=== PATIENT | male | born 1950 | race Caucasian/White ===

== ENCOUNTER 2018-05-02 04:46 | Inpatient (IN) ==
[2018-04-25 17:44] LABS: Appearance,Urine CLEAR; Bilirubin,Urine NEG (NEG); Color,Urine YELLOW; Glucose,Urine (UA) NEGATIVE (NEG); Leukocyte Esterase,Urine NEG /uL (NEG); Protein,Urine NEG (NEG); Specific Gravity,Urine 1.016 (1.000-1.035); Urine Blood NEG mg/dL (<0.03); Urobilinogen,Urine NEG (NEG)
[2018-04-25 18:28] LABS: Basophils # (Auto) 0 K/mcL (0.0-0.3); Basophils % (Auto) 0.7 % (0.0-2.0); Eosinophils # (Auto) 0.2 K/mcL (0.0-0.7); Eosinophils % (Auto) 2.7 % (0.0-7.0); Granulocytes % (Auto) 60.4 % (38.0-78.0); Lymphocytes # (Auto) 1.7 K/mcL (1.5-4.8); Lymphocytes % (Auto) 28.3 % (15.5-49.0); Mean Cell Volume 83.2 fL (80.0-100.0); Mean Corpuscular HGB Conc 33.5 g/dL (31.0-36.0); Mean Corpuscular Hemoglobin 27.8 pg (26.0-34.0); Monocytes # (Auto) 0.5 K/mcL (0.1-0.9); Monocytes % (Auto) 7.9 % (1.0-12.0); Platelet Count 239 K/mcL (140-440); Red Cell Distribution Width 16.3 % (11.5-14.5)
[2018-04-25 18:35] LABS: Blood Urea Nitrogen 14 mg/dl (8-23)
[2018-05-02] MEDS ORDERED: SCOPOLAMINE 1 PATCH PATCH TOPICAL ONE (05:11)
[2018-05-02] MEDS ORDERED: SCOPOLAMINE 1 PATCH PATCH ONE (05:28)
[2018-05-02] MEDS ORDERED: ceFAZolin 1 GM VIAL IV SCH (07:00)
[2018-05-02] MEDS ORDERED: oxyCODONE 10 MG TAB.ER.12H PO SCH (07:00)
[2018-05-02] MEDS ORDERED: 0.9 % SODIUM CHLORIDE 9 ML, KETOROLAC 30 MG, ROPIVACAINE HCL/PF 49.5 ML, EPINEPHrine 0.... IJ SCH (07:00)
[2018-05-02] MEDS ORDERED: CELECOXIB 200 MG CAPSULE PO SCH (07:00)
[2018-05-02] MEDS ORDERED: PREGABALIN 75 MG CAPSULE PO SCH (07:00)
[2018-05-02] MEDS ORDERED: MIDAZOLAM 5 MG/5 ML VIAL IV ONE (07:35)
[2018-05-02] MEDS ORDERED: PROPOFOL 200 MG/20 ML VIAL IV ONE (07:35)
[2018-05-02] MEDS ORDERED: GLYCOPYRROLATE 0.2 MG/ML VIAL IV ONE (07:35)
[2018-05-02] MEDS ORDERED: DEXAMETHASONE 10 MG/ML VIAL IV ONE (07:35)
[2018-05-02] MEDS ORDERED: LIDOCAINE HCL/PF 100 MG/5 ML SYRINGE IV ONE (07:35)
[2018-05-02] MEDS ORDERED: ONDANSETRON 4 MG/2 ML VIAL IV ONE (07:35)
[2018-05-02] MEDS ORDERED: TRANEXAMIC ACID 1,000 MG/10 ML VIAL IV ONE (07:35)
[2018-05-02] MEDS ORDERED: ROPIVACAINE HCL/PF 20 ML VIAL IJ ONE (07:35)
[2018-05-02] MEDS ORDERED: GENTAMICIN SULFATE 800 MG/20 ML VIAL IR ONE (08:19)
[2018-05-02] MEDS ORDERED: fentaNYL 100 MCG/2 ML VIAL IV PRN (08:33)
[2018-05-02] MEDS ORDERED: PROMETHAZINE 25 MG/ML VIAL IV PRN (08:33)
[2018-05-02] MEDS ORDERED: diphenhydrAMINE 50 MG/ML VIAL IV PRN (08:33)
[2018-05-02] MEDS ORDERED: ONDANSETRON 4 MG/2 ML VIAL IV PRN ×2 (08:33→09:11)
[2018-05-02] MEDS ORDERED: IPRATROPIUM/ALBUTEROL 3 ML AMPUL.NEB NEB PRN (08:33)
[2018-05-02] MEDS ORDERED: NALOXONE HCL 0.4 MG/ML VIAL IV PRN (08:33)
[2018-05-02] MEDS ORDERED: MEPERIDINE 25 MG/ML SYRINGE IV PRN (08:33)
[2018-05-02] MEDS ORDERED: ACETAMINOPHEN 1,000 MG/100 ML BOTTLE IV ONE (08:33)
[2018-05-02] MEDS ORDERED: FLUMAZENIL 0.1 MG/ML ML IV PRN (08:33)
[2018-05-02] MEDS ORDERED: LACTATED RINGERS 250 ML IV PRN (08:33)
[2018-05-02] MEDS ORDERED: BENZOCAINE/MENTHOL 1 LOZENGE PO PRN ×2 (08:33→09:11)
[2018-05-02] MEDS ORDERED: LACTATED RINGERS 1,000 ML IV SCH (08:45)
--- NOTE | 2018-05-02 09:10 | Brief Operative Note ---
Date of procedure: 05/02/18 Pre-op diagnosis: right knee oa Post-op diagnosis: same Procedure: right total knee arthroplasty Grafts/Implants: Yes Anesthesia: spinal Complications: none Surgeon: Saran Lockhart Salon Supervisor: Dagmar Boyle Estimated blood loss (cc): 150 Tourniquet Time (Minutes): 67 Specimens Removed/Pathology: none sent Condition: stable Disposition: PACU
[2018-05-02] MEDS ORDERED: METHOCARBAMOL 750 MG TABLET PO PRN (09:11)
[2018-05-02] MEDS ORDERED: TRANEXAMIC ACID 1,000 MG/10 ML VIAL IV SCH (09:11)
[2018-05-02] MEDS ORDERED: BISACODYL 10 MG SUPP.RECT PR PRN (09:11)
[2018-05-02] MEDS ORDERED: ONDANSETRON ODT 4 MG TABLET SL PRN (09:11)
[2018-05-02] MEDS ORDERED: FLEETS ADULT ENEMA PR PRN (09:11)
[2018-05-02] MEDS ORDERED: POLYETHYLENE GLYCOL 3350 17 GM PACKET PO PRN (09:11)
[2018-05-02] MEDS ORDERED: MAGNESIUM HYDROXIDE 30 ML ORAL.SUSP PO PRN (09:11)
--- NOTE | 2018-05-02 09:37 | Operative Note ---
DATE OF OPERATION: 05/02/2018 PREOPERATIVE DIAGNOSIS: Degenerative joint disease, right knee. POSTOPERATIVE DIAGNOSIS: Degenerative joint disease, right knee. PROCEDURE: Right total knee arthroplasty. SURGEON: Samia Lockhart M.D. WIRE WRAPPING MACHINE OPERATOR SURGEON: Dagmar Boyle PA-C. ANESTHESIA: Spinal with LMA assist. ESTIMATED BLOOD LOSS: 150 mL. COMPLICATIONS: None noted. SPECIMENS REMOVED: None. DRAINS: None. TOURNIQUET TIME: 67 minutes at 300 mmHg. IMPLANTS: DePuy CMW2 bone cement 20 grams x5; DePuy Attune tibial base fixed bearing size 8, cemented; DePuy Attune femoral posterior stabilized size 7 right, cemented; DePuy Attune tibial insert fixed bearing posterior stabilized size 7, 8 mm AOX; DePuy Attune patella medialized dome 41 mm cemented AOX. INDICATIONS: The patient has had a long-standing history of worsening pain in the knee that has failed conservative treatment. Radiographs have confirmed advanced degenerative joint disease. After a long discussion about treatment options, the patient elected to proceed with a knee arthroplasty. The risks and benefits were discussed with the patient in detail including, but not limited to, the risks of anesthesia, problems with the heart or lungs related to anesthesia, infection, compromise or injury to the nerves and blood vessels, deep venous thrombosis, pulmonary embolism, pneumonia, continued pain after surgery, worsening pain or symptoms after surgery, swelling, loss of motion, instability, leg length discrepancy, and need for repeat surgery. DESCRIPTION OF PROCEDURE: The patient was seen in the pre-anesthesia waiting room where all questions were answered and the correct side and site were identified and marked. The patient was transferred to the operating room and administered the anesthetic and given pre-operative antibiotics. A time-out was then called. The extremity was prepped and draped, exsanguinated, and the tourniquet was inflated to 300 mmHg. A midline skin incision was then made with a standard medial parapatellar arthrotomy. Debridement of the menisci, ACL, and PCL was performed followed by balancing releases in the medial lateral plane. We then established intramedullary access to both the femur and tibia in a standard fashion. The femoral guide aurora was initially placed with the distal femoral guide, pinned into place, and the distal femoral cut was performed and checked with a flat plate. We then turned our attention to the tibia. The intramedullary guide was placed with the proximal tibial cutting block. The block was appropriately positioned off the affected side, varus and valgus was checked with the extra-medullary guide, and the block was pinned into place. The proximal tibial cut was performed and the tibia was prepared for the tibial implant with appropriate rotation. The tibia, femur, and posterior compartment were debrided of osteophytes, loose bodies, and meniscal fragments We then used the gap balancing technique to balance extension with the first two cuts and good balancing was obtained with a 10 millimeter gap block. We turned our attention back to the femur and used the referencing block and implant to size appropriately. Using the gap balancing technique for the flexion space we set our rotation of the femur off the tibial cut. Anesthesia gave the patient 1 gram of Tranexamic Acid via an intravenous route. We placed the 4 in 1 cutting block and made anterior, posterior, and chamfer cuts. Box plasty cuts were then made in a standard fashion for the posterior stabilized prosthesis. We then completed osteophyte release and posterior capsule release from the posterior compartment. Trials were placed and we chose the polyethylene insert thickness that provided the best stability in all planes. With the trials in place, we did a measured resection for a resurfacing patella. We sized the patella and placed the patella trial and performed a lateral facetectomy with the saw and rongeur. Good tracking was obtained. We removed all trials, irrigated and dried all cut surfaces. We cemented the components into place including tibia, femur and patella. We placed a trial liner and held the knee in full extension with the patella compressed while the cement cured. We then removed all excess cement and placed the final polyethylene tibiofemoral component. Irrigation with 3 liters of antibiotic saline was then performed using jet-lavage. We let the tourniquet down and coagulated bleeding vessels. We injected a 100 cubic centimeter volume including Ropivacaine 49.25 cubic centimeters at 5 milligrams per cubic centimeter, Ketorolac 30 milligrams, and Epinephrine 0.5 milligrams into 100 cubic centimeters volume of normal saline. We closed the retinaculum with #2 Stratafix and 0 Vicryl. We closed the subcutaneous tissue and skin in layers out to Dermabond on the skin. A sterile pressure dressing was applied. All needle and sponge counts were correct. The patient was transferred to the recovery room in stable condition. TAYLOR:addie Job ID: [id number] Doc ID: [id number] Samia Lockhart MD
--- NOTE | 2018-05-02 10:11 | XRay Report ---
CLINICAL INFORMATION: Post-Op Total Knee COMPARISON: None. FINDINGS: Total knee prostheses anatomically aligned. No osseous abnormality. Periarticular gas and soft tissue swelling seen as expected IMPRESSION: Negative Interpreted and Authenticated by: Saran Mata 05/02/18
[2018-05-02] MEDS: KETOROLAC 15 MG/ML VIAL IV SCH ×3 (12:01→23:45)
[2018-05-02] MEDS: 0.9 % SODIUM CHLORIDE 10 ML SYRINGE IV SCH (14:14)
[2018-05-02] MEDS: ceFAZolin 1 GM VIAL IV SCH ×2 (14:45→23:45)
[2018-05-02] MEDS: oxyCODONE/APAP 5/325MG TABLET PO PRN ×2 (14:56→20:53)
[2018-05-02] MEDS: 0.9 % SODIUM CHLORIDE 1,000 ML IV SCH ×2 (18:00→18:02)
[2018-05-02] MEDS: ASPIRIN 325 MG ENTERIC COATED TABLET PO SCH (20:51)
[2018-05-02] MEDS: DOCUSATE SODIUM 100 MG CAPSULE PO SCH (20:52)
[2018-05-02] MEDS ORDERED: ATORVASTATIN 20 MG TABLET PO SCH (21:00)
[2018-05-02] MEDS ORDERED: SENNOSIDES 1 TABLET PO SCH (21:00)
[2018-05-03] MEDS: 0.9 % SODIUM CHLORIDE 10 ML SYRINGE IV SCH ×3 (00:28→13:34)
[2018-05-03] MEDS: 0.9 % SODIUM CHLORIDE 1,000 ML IV SCH (01:15)
[2018-05-03] MEDS: oxyCODONE/APAP 5/325MG TABLET PO PRN ×3 (02:11→13:33)
[2018-05-03] MEDS: KETOROLAC 15 MG/ML VIAL IV SCH ×2 (05:03→12:14)
[2018-05-03] MEDS ORDERED: OMEPRAZOLE 20 MG CAPSULE PO SCH (07:30)
--- NOTE | 2018-05-03 07:33 | Orthopedic Progress Note ---
Subjective Patient information: Note initiated : 05/03/18 at 7:32 am Service Date, if different from initiated Date: [] Patient: Claudy Kingston 67 y/o M admitted on 05/02/18 for Right Total Knee Arthroplasty. Chief Complaint: [] Interval history: doing well. no complaints Objective Vital signs: Vital Signs Temp Pulse Resp BP Pulse Ox 05/03/18 04:00 97.5 F 68 16 114/64 96 05/03/18 00:00 97.7 F 81 16 115/65 95 05/02/18 20:00 97.6 F 96 H 16 119/71 93 05/02/18 15:44 97.3 F 72 16 123/65 98 05/02/18 13:00 70 05/02/18 11:55 96.1 F L 68 14 153/69 95 05/02/18 11:45 67 131/67 97 05/02/18 11:15 68 133/69 95 05/02/18 10:45 65 129/70 98 05/02/18 10:30 68 127/69 96 05/02/18 10:20 75 14 95 05/02/18 10:15 72 127/68 95 05/02/18 10:00 97.3 F 78 15 137/58 95 05/02/18 09:45 85 14 128/61 96 05/02/18 09:40 74 10 L 117/58 96 05/02/18 09:35 77 10 L 107/56 95 05/02/18 09:30 97.0 F 82 11 L 110/52 94 Intake and Output 05/02/18 05/03/18 05/03/18 21:59 05:59 13:59 Intake Total 550 / 550 1000 / 1000 Output Total 1600 / 1600 800 / 800 Balance -1050 / -1050 200 / 200 Intake: IV 1000 / 1000 Sodium Chloride 0.9% 1,000 ml @ 1000 / 1000 125 mls/hr IV .Q8H [facility] Rx#: [id number] Oral 550 / 550 0 / 0 Output: Urine Catheter Amount 1050 / 1050 Straight 1000 / 1000 Void Amount 550 / 550 800 / 800 Other: Meal Dinner Percent of Meal Consumed 100% Feeding Ability Independent Urine Appearance Clear Clear Straight Clear Urine Color Bright Yellow Straw Straight Bright Yellow Urine Odor Normal Normal Straight Normal # Voids 1 Weight 188 lb 8 oz Intake & Output: Intake & Output 10/30/18 10/31/18 10/31/18 21:59 05:59 13:59 Intake Total 550 / 550 1000 / 1000 Output Total 1600 / 1600 800 / 800 Balance -1050 / -1050 200 / 200 Weight 188 lb 8 oz Intake: IV 1000 / 1000 Sodium Chloride 0.9% 1,000 ml @ 1000 / 1000 125 mls/hr IV .Q8H [facility] Rx#: [id number] Oral 550 / 550 0 / 0 Output: Urine Catheter Amount 1050 / 1050 Straight 1000 / 1000 Void Amount 550 / 550 800 / 800 Other: Meal Dinner Percent of Meal Consumed 100% Feeding Ability Independent Urine Appearance Clear Clear Straight Clear Urine Color Bright Yellow Straw Straight Bright Yellow Urine Odor Normal Normal Straight Normal # Voids 1 Incision: Yes healing Incision clean and dry: Yes Dressing: Yes clean, Yes dry, Yes intact Weight bearing status: full Neurological exam IM: Yes abnormal gait, Yes alert, Yes oriented X3, Yes motor sensory intact, Yes neurovascular intact Extremities exam IM: No calf tenderness, Yes Foot pink and warm, Yes neurovascular intact - Labs CBC & BMP: 05/03/18 04:26 04/25/18 15:57 Labs: Orthopedic Labs 04/25/18 15:57 PT 12.5 INR 0.9 05/03/18 04/25/18 04:26 15:57 Hgb 10.6 L 13.4 L Hct 31.5 L 40.0 L Assessment and Plan (1) Knee osteoarthritis pod 1 s/p tka wbat pain control dvt prophylaxis dc planning Status: Acute
--- NOTE | 2018-05-03 07:34 | Discharge Summary ---
Ortho Discharge - TKA - Patient Instructions Diet: Regular Diet Activity: activity as tolerated, ambulate with assistive device, weight bearing as tolerated Total Knee Protocol: For Total Knee: Start ROM DEBRA with stationary bike or rocking chair. Work on gaining full extension of knee. Posterior dislocation precautions provided. Hip abductor strengthening and gait training instructions provided. Apply Cryocuff as instructed. Dressing Care: May shower in 2 days - Problem Maintenance (1) Knee osteoarthritis Status: Acute - Follow Up Plan Follow Up Appointments: Dagmar Boyle PA-C [Physician Door Core Assembler] - 05/17/18 11:00 am Disposition: Home, Self-Care Prognosis: Good Rehab Potential: Good I certify that the patient requires SNF services: No Overall status at discharge: patient is progressing back to baseline
[2018-05-03] MEDS: ASPIRIN 325 MG ENTERIC COATED TABLET PO SCH (08:09)
[2018-05-03] MEDS: DOCUSATE SODIUM 100 MG CAPSULE PO SCH (08:09)
== END 2018-05-03 14:00 | disposition home or self-care (01) | DRG 470 ==
LOC: MEDSUR 04:46
PROVIDERS: ADMIT Orthopaedic Surgery Sports Medicine; ATTEND Orthopaedic Surgery Sports Medicine
CPT/HCPCS: 62322; 97161; 97165; C1776; J0131; J0690; J1100; J1580; J1885; J2001; J2250; J2405; J2795; J7030; J7120